=== PATIENT | male | born 1970 | race African-American/Black ===

== ENCOUNTER 2023-06-27 11:06 | Emergency (ER) | payer MEDICARE, MEDICAID ==
[~2023-06-27] VITALS: Ht 175.3 cm; Wt 75.0 kg
[2023-06-27 11:20] VITALS: O2SAT 99
[2023-06-27 16:40] VITALS: BP 139/71; PULSE 70; RESP 18; TEMP 98.5
== END 2023-06-27 16:44 | disposition home or self-care (01) ==
LOC: ER 11:34
DX: R42 Dizziness and giddiness (principal); Z98.2 Presence of cerebrospinal fluid drainage device; I10 Essential (primary) hypertension
CPT/HCPCS: 70360; 71045; 74018; 99284